=== PATIENT | female | born 1980 | race Caucasian/White ===

== ENCOUNTER 2017-07-30 10:08 | Emergency (ER) | payer OTHER ==
[~2017-07-30] VITALS: Ht 165.1 cm; Wt 86.2 kg
[~2017-07-30 10:08] MED LIST: ATARAX25 MG PO; DECADRON4 MG PO; FLEXERIL10 MG PO; MOTRIN800 MG PO; PREDNISONE20 MG PO
[2017-07-30 10:15] VITALS: BP 128/85
[2017-07-30] MEDS ORDERED: CYCLOBENZAPRINE5 M3 PO (13:17)
[2017-07-30] MEDS ORDERED: MEDROL DOSEPAK4 MG PO (13:17)
[2017-07-30] MEDS ORDERED: Motrin,Rufen800 MG PO (13:17)
== END 2017-07-30 13:29 | disposition home or self-care (01) ==
LOC: ED 10:08
DX: M54.16 Radiculopathy, lumbar region (principal); F17.200 Nicotine dependence, unspecified, uncomplicated; Z88.0 Allergy status to penicillin; Z88.1 Allergy status to other antibiotic agents; Z88.6 Allergy status to analgesic agent